=== PATIENT | male | born 1955 | race African-American/Black ===

== ENCOUNTER 2018-04-29 09:21 | Emergency (ER) | payer OTHER ==
[~2018-04-29] VITALS: Ht 193 cm; Wt 86.4 kg
[2018-04-29 09:23] VITALS: Ht 193 cm; Wt 86.4 kg
[2018-04-29] MEDS ORDERED: HYDROCHLOROTHIA25 MG PO (09:24)
[2018-04-29] MEDS ORDERED: PENICILLIN V P500 MG PO (09:25)
[2018-04-29] MEDS ORDERED: IBUPROFEN600 MG PO (09:26)
[2018-04-29] MEDS ORDERED: CYCLOBENZAPRINE10 MG PO (09:26)
[2018-04-29 10:10] LABS: BASOPHILS 0.1 % (0-2); EOSINOPHILS 0 % (0-7); HEMATOCRIT 41.7 % (42.0-54.0); HEMOGLOBIN 14.3 g/dL (13.5-17.5); IMMATURE GRANULOCYTES 0.2 % (0-5); LYMPHOCYTES 9.3 % (15-50); MCH 31.4 pg (26.0-34.0); MCHC 34.3 g/dL (31.0-37.0); MCV 91.6 fL (80.0-100.0); MEAN PLATELET VOLUME 10.3 fL (7.4-10.4); MONOCYTES 4.7 % (2-11); NEUTROPHILS 85.7 % (40-80); PLATELET COUNT 181 10x3/uL (130-400); RBC 4.55 10x6/uL (4.20-6.10); RDW 13.1 % (11.5-14.5); WBC 8.8 10x3/uL (4.8-10.8)
[2018-04-29 10:26] LABS: ALBUMIN 4.1 g/dL (3.4-5.0); ANION GAP 18.2 mmol/L (8-16); BILIRUBIN - TOTAL 0.59 mg/dL (0.2-1.3); CALCIUM 8.9 mg/dL (8.5-10.1); CARBON DIOXIDE 25.8 mmol/L (21.0-32.0); CREATININE - SERUM 1.3 mg/dL (0.6-1.3); PROTEIN - SERUM 7.8 g/dL (6.4-8.2)
[2018-04-29] MEDS ORDERED: HYDROCODON-ACE1 EAC7 PO (12:19)
[2018-04-29] MEDS ORDERED: ZOFRAN ODT4 MG/UDTAB PO (12:19)
[2018-04-29] MEDS ORDERED: LOMOTIL TABLET1 TAB PO (12:19)
[2018-04-29 12:44] VITALS: BP 112/71
== END 2018-04-29 12:56 | disposition home or self-care (01) ==
LOC: D.ER 09:21
PROVIDERS: Emergency Medicine
DX: K52.9 Noninfective gastroenteritis and colitis, unspecified (principal); R11.2 Nausea with vomiting, unspecified